=== PATIENT | female | born 1980 | race Caucasian/White ===

== ENCOUNTER 2016-11-01 01:07 | Emergency (ER) | payer BC ==
[2016-11-01] MEDS ORDERED: OPTIRAY 350 100 ML VIAL HMH IV ONE (01:08)
[2016-11-01] MEDS ORDERED: KETOROLAC 30 MG/ML VIAL ONE (05:55)
[2016-11-01] MEDS ORDERED: ONDANSETRON 4 MG VIAL ONE (05:56)
== END 2016-11-01 08:46 | disposition home or self-care (01) ==
LOC: ER 01:07
DX: N30.00 Acute cystitis without hematuria (principal); F17.210 Nicotine dependence, cigarettes, uncomplicated
CPT/HCPCS: 36415; 74177; 80053; 81001; 83690; 84703; 85025; 87088; 96361; 96374; 96375